=== PATIENT | male | born 1960 | race Caucasian/White ===

== ENCOUNTER 2018-02-16 11:16 | Emergency (ER) | payer SELFPAY ==
[2018-02-16 11:22] VITALS: RESP 18; TEMP 99
[2018-02-16 12:07] VITALS: O2SAT 100
--- NOTE | 2018-02-16 12:26 | RAD ---
Date of service: 02/16/2018 HISTORY: Cough COMPARISON: No prior. TECHNIQUE: Chest PA and lateral FINDINGS: LINES AND TUBES: None. LUNG AND PLEURA: The lungs are well inflated and clear. No pleural effusion or pneumothorax. HEART AND MEDIASTINUM: The heart is not enlarged. No aortic atherosclerotic calcification present. The hilar and mediastinal contours are within normal limits. SKELETAL STRUCTURES: The bony structures are within normal limits for the patient's age. There is an age indeterminate but likely chronic compression deformity in the midthoracic spine. VISUALIZED UPPER ABDOMEN: Normal. OTHER FINDINGS: None. IMPRESSION: No active pulmonary disease.
[2018-02-16 12:49] VITALS: BP 153/105; PULSE 71
--- NOTE | 2018-02-16 13:13 | C.PDOC ---
History Of Present Illness 57 year old male with a remote history of hypertension presents to the ED for evaluation of a slightly productive cough with subjective fever for a few weeks. 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 He states he does not have a PMD, does not take any medications for hypertension, diet is controlled. Denies recent travel, chest pain, shortness of breath, blurred/double vision, nausea, vomiting, and any other associated symptoms. Time Seen by Provider: 02/16/18 11:29 Chief Complaint (Nursing): Cough, Cold, Congestion History Per: Patient History/Exam Limitations: no limitations Onset/Duration Of Symptoms: Other (few weeks. ) Current Symptoms Are (Timing): Still Present Associated Symptoms: Fever (subjective.) Recent travel outside of the [facility]: No Past Medical History Reviewed: Historical Data, Nursing Documentation, Vital Signs Vital Signs: Last Vital Signs Temp 99 F 02/16/18 11:19 Pulse 71 02/16/18 12:35 Resp 18 02/16/18 12:35 BP 153/105 H 02/16/18 12:35 Pulse Ox 100 02/16/18 12:35 Family History: States: Unknown Family Hx - Social History Hx Alcohol Use: Yes Hx Substance Use: No - Immunization History Hx Tetanus Toxoid Vaccination: No Hx Influenza Vaccination: No Hx Pneumococcal Vaccination: No Review Of Systems Except As Marked, All Systems Reviewed And Found Negative. Constitutional: Positive for: Fever (subjective.) Eyes: Negative for: Vision Change Cardiovascular: Negative for: Chest Pain Respiratory: Positive for: Cough (slightly productive.). Negative for: Shortness of Breath Gastrointestinal: Negative for: Nausea, Vomiting Physical Exam - Physical Exam Appears: Non-toxic, No Acute Distress Skin: Normal Color, Warm, Dry Head: Atraumatic, Normacephalic Eye(s): bilateral: Normal Inspection Ear(s): Bilateral: Normal Nose: Normal Oral Mucosa: Moist Throat: Normal, No Erythema, No Exudate Neck: Normal ROM, Supple Chest: Symmetrical Cardiovascular: Rhythm Regular, No Murmur Respiratory: Normal Breath Sounds, No Rales, No Rhonchi, No Wheezing Gastrointestinal/Abdominal: Normal Exam, Soft, No Tenderness Extremity: Normal ROM (x4) Neurological/Psych: Oriented x3, Normal Speech, Normal Cognition ED Course And Treatment O2 Sat by Pulse Oximetry: 100 (RA) Pulse Ox Interpretation: Normal - Other Rad CXR X-Ray: Viewed By Me, Read By Radiologist Interpretation: FINDINGS: LINES AND TUBES: None. LUNG AND PLEURA: The lungs are well inflated and clear. No pleural effusion or pneumothorax. HEART AND MEDIASTINUM: The heart is not enlarged. No aortic atherosclerotic calcification present. The hilar and mediastinal contours are within normal limits. SKELETAL STRUCTURES: The bony structures are within normal limits for the patient's age. There is an age indeterminate but likely chronic compression deformity in the midthoracic spine. VISUALIZED UPPER ABDOMEN: Normal. OTHER FINDINGS: None. IMPRESSION: No active pulmonary disease. Medical Decision Making Medical Decision Making: Plan: -CXR -Influenza Progress/Update: Patient stable for discharge home. Prescribed Chewable Aspirin and Tylenol. Advised to return to the ED if symptoms progress. Disposition - Disposition Referrals: [facility] [Outside] [facility] [Outside] Disposition: HOME/ ROUTINE Disposition Time: 12:50 Condition: GOOD Additional Instructions: ANDREAS AGUILAR, thank you for letting us take care of you today. The emergency medical care you received today was directed at your acute symptoms. If you were prescribed any medication, please fill it and take as directed. It may take several days for your symptoms to resolve. Return to the Emergency Department if your symptoms worsen, do not improve, or if you have any other problems. Please contact your doctor or call one of the physicians/clinics you have been referred to that are listed on the Patient Visit Information form that is included in your discharge packet. Bring any paperwork you were given at discharge with you along with any medications you are taking to your follow up visit. Our treatment cannot replace ongoing medical care by a primary care provider outside of the emergency department. Thank you for allowing the [facility] team to be part of your care today. Followup with the clinic next week for a blood pressure check and further rashi gempreston. Prescriptions: Azithromycin [Zithromax] 250 mg PO DAILY #6 tab Instructions: Controlling Your Blood Pressure Through Lifestyle, Upper Respir atory Infection (ED) Forms: [employer] (Romanian) - Clinical Impression Clinical Impression: Upper respiratory infection, Hypertension - Scribe Statement The provider has reviewed the documentation as recorded by the Scribe (Elsa Shipley) Provider Attestation: All medical record entries made by the Scribe were at my direction and personally dictated by me. I have reviewed the chart and agree that the record accurately reflects my personal performance of the history, physical exam, medical decision making, and the department course for this patient. I have also personally directed, reviewed, and agree with the discharge instructions and disposition.
== END 2018-02-16 13:23 | disposition home or self-care (01) ==
LOC: C.ER 11:16
DX: J06.9 Acute upper respiratory infection, unspecified (principal); I10 Essential (primary) hypertension